=== PATIENT | male | born 1995 | race American Indian/Alaskan Native ===

== ENCOUNTER 2019-05-13 14:24 | Emergency (ER) | payer SELFPAY ==
[2019-05-13 16:17] VITALS: BP 106/81
--- NOTE | 2019-05-13 16:19 | Event Note ---
ED Screening Note Date of service: 05/13/19 ED Screening Note: This initial assessment/diagnostic orders/clinical plan/treatment(s) is/are subject to change based on patients health status, clinical progression and re- assessment by fellow clinical providers in the ED. Further treatment and workup at subsequent clinical providers discretion. Patient/guardian urged not to elope from the ED as their condition may be serious if not clinically assessed and managed. Initial orders include: Respiratory sx. went to [facility] at weeks ago. Dx Flu. Last 3-4 days DALY. Was cough more. Lungs CTA Cardiac mildlly tachy No recent travel or leg pain. Neg PMH
[2019-05-13 16:46] LABS: Hematocrit 52.5 % (35.5-45.6); Hemoglobin 17.5 gm/dl (11.8-15.2); Mean Corpuscular HGB Conc 33 % (32-34); Mean Corpuscular Volume 78 fl (84-94); Platelet Count 183 K/mm3 (140-440); Red Blood Count 6.71 M/mm3 (3.65-5.03)
--- NOTE | 2019-05-13 16:48 | XRay Report ---
CHEST 2 VIEWS INDICATION / CLINICAL INFORMATION: MAIN: DALY; Pt. c/o weakness, cough, LEONG and fever x 5 days. . COMPARISON: 11/20/2013 FINDINGS: SUPPORT DEVICES: None. HEART / MEDIASTINUM: No significant abnormality. LUNGS / PLEURA: No significant pulmonary or pleural abnormality. No pneumothorax. ADDITIONAL FINDINGS: No significant additional findings. IMPRESSION: No acute finding. No significant change. Signer Name: Neo Cespedes MD Signed: 05/13/2019 4:43 PM Workstation Name: [id number]
[2019-05-13 17:09] LABS: BUN/Creatinine Ratio 20; Blood Urea Nitrogen 16 mg/dL (9-20); Calcium 9.7 mg/dL (8.4-10.2); Hemolysis Index 47
[2019-05-13 18:43] LABS: Basophils % (Manual) 0 % (0.0-1.8); Eosinophils % (Manual) 0 % (0.0-4.3); Total Cells Counted 100
[2019-05-13 18:44] LABS: Large Platelets 1+; Ovalocytes Few; Poikilocytosis Few
[2019-05-13 18:45] LABS: Platelet Estimate Consistent w Auto
== END 2019-05-13 21:25 | disposition left against medical advice (07) ==
LOC: ED 14:24
DX: R05 Cough (principal); R51 Headache; Z53.21 Procedure and treatment not carried out due to patient leaving prior to being seen by health care provider
CPT/HCPCS: 36415; 71046; 80048; 85007; 85025